=== PATIENT | female | born 1980 | race Caucasian/White ===

== ENCOUNTER 2016-10-16 11:48 | Emergency (ER) | payer BC ==
[~2016-10-16 11:48] MED LIST: ALBUTEROL5 INH; ANTIDEPRESSANT; AUG500 PO; C25 PO; C5 PO; COUMADIN10 MG PO; DULERA 200 MCG/13 GM INH; FESO4 PO; FLONASE NAS; HYDROCHLOROT25 MG PO; LEVAQUIN750 MG PO; LOP25 PO; LOVENOX; P20; PROAIR HFA INH; TAMIFLU PO; TESS PO; UNKNOWN ANTIBIOTIC PO; VICKS DAYQUIL PO; WARFARIN PO
[2016-10-16 11:49] LABS: ALLENS TEST Pos; BE (BASE EXCESS) 3.3 MEQ/L (0 +/- 2.5); CARBOXYHEMOGLOBIN 1.6 % (0-3); HCO3 (ACTUAL BICARBONATE) 28.4 MEQ/L (23-27); HEMOBLOGIN CONTENT 13.4 G/DL (12-16); INSTRUMENT SERIAL # 8087; METHEMOGLOBIN 0.2 % (0-3); O2 CONTENT 17.2 VOL% (18-24); PCO2 (CO2 TENSION) 45 MMHG (35-45); PO2 (O2 TENSION) 69 MMHG (79-93); SAMPLE Arterial; pH 7.42 (7.37-7.43)
[2016-10-16 12:16] LABS: BASOPHILS 0.4 %; BASOPHILS ABSOLUTE 0.03 10/3/uL (0.0-0.16); EOSINOPHILS 3.6 %; EOSINOPHILS ABSOLUTE 0.28 10/3/uL (0.0-0.53); ER CBC TAT 0 Hrs 11 Mins; HEMOGLOBIN 12.8 g/dL (12.0-16.0); IMMATURE GRANULOCYTES 1.9 %; IMMATURE GRANULOCYTES ABSOLUTE 0.15 10/3/uL (0.0-0.11); LYMPHOCYTES 33.2 %; MEAN CORPUSCULAR HEMOGLOB 26.4 pg (26.0-34.0); MONOCYTES 9.3 %; MONOCYTES ABSOLUTE 0.73 10/3/uL (0.21-1.20); NEUTROPHILS 51.6 %; NEUTROPHILS ABSOLUTE 4.03 10/3/uL (2.02-8.40); PLATELET COUNT 180 10/3/uL (150-400); RBC DISTRIBUTION WIDTH 15.6 % (12.0-16.0); RED CELL COUNT 4.84 10/6/uL (4.0-5.6); WHITE BLOOD CELLS 7.8 10/3/uL (4.5-10.5)
[2016-10-16 12:18] LABS: MANUAL DIFF NO %; MEAN CORPUSCULAR VOLUME 82.6 fL (80-100)
[2016-10-16 12:22] LABS: PARTIAL THROMBO TIME 23.8 SEC (22.5-37.2)
[2016-10-16 12:27] LABS: PROTIME (NOT ORD) 13.5 SEC (12.0-14.5)
[2016-10-16 12:34] LABS: CHEST PAIN PROFILE TAT 0 Hrs 29 Mins; CHLORIDE, SERUM 104 MMOL/L (96-112); CO2 (CARBON DIOXIDE) 28 MMOL/L (24-34); CREATININE 0.77 MG/DL (0.55-1.02); GFR AFRICAN AMERICAN 117 ML/MIN (>=60); GFR NON AFRICAN AMERICAN 101 ML/MIN (>=60); GLUCOSE, SERUM 111 MG/DL (60-99); SODIUM, SERUM 142 MMOL/L (135-148); TROPONIN I <0.02 NG/ML (<0.05)
[2016-10-16 12:36] LABS: BUN (BLOOD UREA NITROGEN) 14 MG/DL (6-23); CALCIUM, SERUM 9.9 MG/DL (8.5-10.4)
== END 2016-10-16 16:06 | disposition home or self-care (01) ==
LOC: ER 11:48
PROVIDERS: Nurse Practitioner
DX: R06.02 Shortness of breath (principal); J45.909 Unspecified asthma, uncomplicated; J44.9 Chronic obstructive pulmonary disease, unspecified; I10 Essential (primary) hypertension; Z87.442 Personal history of urinary calculi; Z88.2 Allergy status to sulfonamides; Z88.6 Allergy status to analgesic agent; Z79.899 Other long term (current) drug therapy; Z79.52 Long term (current) use of systemic steroids; Z79.01 Long term (current) use of anticoagulants
CPT/HCPCS: 36600; 71010; 71275; 80048; 82805; 83735; 83880; 84484; 85025; 85610; 85730; 93005; 94640; 99285; Q9967